=== PATIENT | male | born 1995 | race Hispanic/Latino ===

== ENCOUNTER 2022-04-07 17:09 | Emergency (ER) | payer MEDICAID, SELFPAY ==
[2022-04-07] MEDS ORDERED: Boostrix 0.5 ML (Tdap) VIAL (>/=7 yrs of age) ONE (17:39)
[2022-04-07] MEDS ORDERED: Bacitracin 1 PK ONE (18:30)
[2022-04-07] MEDS ORDERED: Lidocaine 1% (PF) 30 ML VIAL ONE (18:30)
[2022-04-07] MEDS ORDERED: Cephalexin 250 MG CAP ONE (19:08)
== END 2022-04-07 19:18 | disposition home or self-care (01) ==
LOC: NAV ERS 17:09
DX: S61.412A Laceration without foreign body of left hand, initial encounter (principal); W26.8XXA Contact with other sharp object(s), not elsewhere classified, initial encounter
CPT/HCPCS: 12001; 90471; 90715; J2001